=== PATIENT | male | born 1960 | race African-American/Black ===

== ENCOUNTER 2023-03-13 19:46 | Emergency (ER) | payer MEDICARE, SELFPAY ==
[2023-03-13] MEDS ORDERED: traMADol HCl 50 MG TAB ONE ×2 (20:20)
[2023-03-13] MEDS ORDERED: HYDROcodone/Acetaminophen 10/325 mg Tablet ONE (20:26)
[2023-03-13] MEDS ORDERED: Clindamycin 150 MG CAP ONE (20:26)
== END 2023-03-13 21:22 | disposition home or self-care (01) ==
LOC: NAV ERS 19:46
DX: L02.511 Cutaneous abscess of right hand (principal); I10 Essential (primary) hypertension; E78.5 Hyperlipidemia, unspecified; Z79.899 Other long term (current) drug therapy
CPT/HCPCS: 26010; 87070; 87205